=== PATIENT | female | born 1940 | race Caucasian/White ===

== ENCOUNTER 2016-04-23 05:39 | Inpatient (IN) | payer MEDICARE ==
[2016-04-23 06:24] LABS: Hematocrit 26 % (35-47); Hemoglobin 8.6 g/dl (12.0-16.0); Mean Corpuscular HGB Conc 33 g/dl (31-36); Mean Corpuscular Hemoglobin 32 pg (27-31); Mean Corpuscular Volume 99 fL (80-97); Mean Platelet Volume 9 um3 (7.4-10.4); Red Blood Count 2.65 10^6/ul (4.0-5.4); Red Cell Distribution Width 14 % (10.5-15); White Blood Count 2.9 10^3/ul (3.5-10.8)
[2016-04-23 06:25] LABS: Add Diff/Slide Review? Slide Review Added; Comments Flag Yes
[2016-04-23 06:42] LABS: Budding Yeast Present (Absent); Urine Bacteria Absent (Absent); Urine Bilirubin Negative (Negative); Urine Glucose Negative (Negative); Urine Nitrite Negative (Negative)
[2016-04-23 06:50] LABS: Albumin 2.3 g/dL (3.2-5.2); BUN/Creatinine Ratio 36.6 (8-20); Calcium 7.5 mg/dL (8.6-10.3); EGFR African American 87.9 (>60); EGFR Non-African American 68.3 (>60); Magnesium 1.6 mg/dL (1.9-2.7); Potassium 4.7 mmol/L (3.5-5.0); Total Bilirubin 0.7 mg/dL (0.2-1.0); Total Protein 5.3 g/dL (6.4-8.9)
[2016-04-23 06:52] LABS: Troponin I 0.04 ng/mL (<0.04)
[2016-04-23 06:55] LABS: Hypochromasia 1+; Immature Granulocytes 22 % (0-9); Neutrophil % 70 % (38-83); Toxic Granulation 2+
[2016-04-23] MEDS ORDERED: Norepinephrine 16MCG/ML IVPRE* 4,000 MCG/250 ML BAG IV ONE (07:06)
[2016-04-23 07:41] LABS: PCO2 Arterial 43 mmHg (35-45)
[2016-04-23] MEDS ORDERED: Vancomycin(*) 1,000 MG in NS 0.9% 250 ML* 250 ML IVPB ONE (07:48)
--- NOTE | 2016-04-23 08:07 | HP ---
H&P (Free Text) History and Physical: PCP: Dr Anglin Pulmonology: Abbie Finn Psychiatry: Kae Abdul Date/Time of Evaluation: 04/23/2016 0530 CC: septic shock 2nd RLL pneumonia HPI: Mrs Mcclelland is a 75YO female HX COPD, HTN, & anxiety who is received in transfer from [place] intubated and on 20mics of norepinephrine GTT with the diagnosis of septic shock 2nd RLL pneumonia, likely aspiration. This history is therefore obtained from her , 2 daughter, and the [place] ED provider. She began feeling like she had with her previous pneumonia 03/25/2016. However, CXR at [facility] was reportedly negative and no treatment prescribed. She continued to worsen returning to [place] 03/27/2016 this time with a CXR positive for RLL pneumonia. She was admitted to [facility] from 03/27/2016 - 04/06, but was not improving adequately and so was transferred to [facility] where her track car operator, Dr Carvajal, practices. CT chest reportedly confirmed RLL pneumonia. She was treated with meropenem and a swallowing evaluation resulted in a recommendation for honey-thick fluids. On 04/17 she was felt brynn for discharge to [facility] for acute rehab of generalized deconditioning. While there the family believes speech therapy was working with her to improve swallowing and get her back to thin fluids. They did note that she continued to sound 'gurgly' when breathing. While still at [facility] she started becoming confused, refusing to see family, etc which progressed to lethargy by 04/22/2016 for which she was taken back to [place] ED with finding of recurrent RLL pneumonia and admitted. Within hours of admission, she had manifested septic shock with pressures of 70s/30s not responding to dopamine for pressure support & with an saO2 in the high 80s despite 15L oxymask for which she was transitioned to BiPap prompting a request to transfer. Instructions were given to D/C dopamine, start/titrate norepinephrine GTT to MAP of 60, and intubate for airway protection en route. Upon arrival to our ICU bed 6, her systolic was 110s on 20mics of norepinephrine with likewise stable other vitals. Of note, her daughter thought that a sputum CX at [facility] had been "weakly" positive for MRSA, but that her physician wasn't convinced. 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 MRSA positive sputum CX at [facility] this month depression/anxiety, has electroconvulsive therapy ~Q10D at [facility] via Dr Barnes Allergies: to be updated by nursing Medications: will need to be reconciled by nursing via Rx PSurgHx acoustic neuroma excision cholecystectomy hysterectomy rectocele repair SocHx: former smoker quit ~25years ago w/ ~30PYHX, no alcohol or recreational drugs; lives with her , has 2 adult daughter; full code status FamHx: reviewed, non-contributory ROS: as above, otherwise reviewed and all were negative Constitutional: NAD, normally developed, well-nourished elderly white female vitals: Vital Signs Temp 37.2 C 04/23/16 07:34 Pulse 96 04/23/16 06:05 Resp 15 04/23/16 06:05 BP 125/44 04/23/16 06:05 Pulse Ox 98 04/23/16 06:05 Intake & Output 04/22/16 04/22/16 04/23/16 11:59 23:59 11:59 Weight 137 lb 2.04 oz HEENM: atraumatic; sclera/conjunctiva: non-icteric/mildly injected; hearing: unable to assess; oropharynx: intubated, mucosa moist Neck: soft tissue: non-tender; thyroid: normal Pulmonary: clear to auscultation bilaterally, good aeration, no accessory muscle use CV: RR/RR, normal S1S2, no carotid bruit, no jugular venous distention, 2+ B DP/ PT, no edema Abdominal: soft, non-distended, non-tender, no rebound/guarding/rigidity, normoactive bowel sounds, no hepatosplenomegaly or masses, no costovertebral angle tenderness Musculoskeletal: general: grossly intact; gait: currently non-ambulatory 2nd critical condition Integumental: normal appearance and texture of exposed skin, complete exam to be completed later Psychiatric orientation: sedated on propfol, RASS -1 affect: somnolent mood: comfortable eye contact: absent content: absent responses: withdraws purposefully insight: currently absent Testing: Lab Results 04/23/16 04/23/16 04/23/16 Range/Units 06:00 06:00 06:00 WBC 2.9 L (3.5-10.8) 10^3/ul RBC 2.65 L (4.0-5.4) 10^6/ul Hgb 8.6 L (12.0-16.0) g/dl Hct 26 L (35-47) % MCV 99 H (80-97) fL MCH 32 H (27-31) pg MCHC 33 (31-36) g/dl RDW 14 (10.5-15) % Plt Count 131 L (150-450) 10^3/ul MPV 9 (7.4-10.4) um3 Immature Gran % (Auto) 22 H (0-9) % Neut % (Auto) 88.4 H (38-83) % Lymph % (Auto) 4.8 L (25-47) % Terrell % (Auto) 6.6 (1-9) % Eos % (Auto) 0 (0-6) % Baso % (Auto) 0.2 (0-2) % Absolute Neuts (auto) 2.6 (1.5-7.7) 10^3/ul Absolute Lymphs (auto) 0.1 L (1.0-4.8) 10^3/ul Absolute Monos (auto) 0.2 (0-0.8) 10^3/ul Absolute Eos (auto) 0 (0-0.6) 10^3/ul Absolute Basos (auto) 0 (0-0.2) 10^3/ul Absolute Nucleated RBC 0 10^3/ul Neutrophils % 70 (38-83) % Band Neutrophils % 22 H (0-8) % Monocytes % 8 (0-13) % Nucleated RBC % 0 Toxic Granulation 2+ Normal RBC Morphology Not Reportable Hypochromasia 1+ INR (Anticoag Therapy) 0.98 (0.89-1.11) ABG pH (7.35-7.45) ABG pCO2 (35-45) mmHg ABG pO2 (80-100) mmHg ABG HCO3 (19-31) mmol/L ABG O2 Saturation (95-98) % ABG Base Excess (-2.0-2.0) Sodium 139 (133-145) mmol/L Potassium 4.7 (3.5-5.0) mmol/L Chloride 107 (101-111) mmol/L Carbon Dioxide 25 (22-32) mmol/L Anion Gap 7 (2-11) mmol/L BUN 30 H (6-24) mg/dL Creatinine 0.82 (0.51-0.95) mg/dL Est GFR ( Amer) 87.9 (>60) Est GFR (Non-Af Amer) 68.3 (>60) BUN/Creatinine Ratio 36.6 H (8-20) Glucose 174 H (70-100) mg/dL Lactic Acid (0.5-2.0) mmol/L Calcium 7.5 L (8.6-10.3) mg/dL Magnesium 1.6 L (1.9-2.7) mg/dL Total Bilirubin 0.70 (0.2-1.0) mg/dL AST 11 L (13-39) U/L ALT 18 (7-52) U/L Alkaline Phosphatase 46 (34-104) U/L Troponin I 0.04 H* (<0.04) ng/mL Total Protein 5.3 L (6.4-8.9) g/dL Albumin 2.3 L (3.2-5.2) g/dL Globulin 3.0 (2-4) g/dL Albumin/Globulin Ratio 0.8 L (1-3) Urine Color Urine Appearance Urine pH (5-9) Ur Specific Sherman (1.010-1.030) Urine Protein (Negative) Urine Ketones (Negative) Urine Blood (Negative) Urine Nitrate (Negative) Urine Bilirubin (Negative) Urine Urobilinogen (Negative) Ur Leukocyte Esterase (Negative) Urine WBC (Auto) (Absent) Urine RBC (Auto) (Absent) Ur Squamous Epith Cells (Absent) Ur Transition Epith Cell (Absent) Urine Bacteria (Absent) Granular Casts (Absent) Urine Yeast (Absent) Urine Glucose (Negative) Urine Ascorbic Acid (Negative) 04/23/16 04/23/16 04/23/16 Range/Units 06:00 06:00 07:20 WBC (3.5-10.8) 10^3/ul RBC (4.0-5.4) 10^6/ul Hgb (12.0-16.0) g/dl Hct (35-47) % MCV (80-97) fL MCH (27-31) pg MCHC (31-36) g/dl RDW (10.5-15) % Plt Count (150-450) 10^3/ul MPV (7.4-10.4) um3 Immature Gran % (Auto) (0-9) % Neut % (Auto) (38-83) % Lymph % (Auto) (25-47) % Terrell % (Auto) (1-9) % Eos % (Auto) (0-6) % Baso % (Auto) (0-2) % Absolute Neuts (auto) (1.5-7.7) 10^3/ul Absolute Lymphs (auto) (1.0-4.8) 10^3/ul Absolute Monos (auto) (0-0.8) 10^3/ul Absolute Eos (auto) (0-0.6) 10^3/ul Absolute Basos (auto) (0-0.2) 10^3/ul Absolute Nucleated RBC 10^3/ul Neutrophils % (38-83) % Band Neutrophils % (0-8) % Monocytes % (0-13) % Nucleated RBC % Toxic Granulation Normal RBC Morphology Hypochromasia INR (Anticoag Therapy) (0.89-1.11) ABG pH 7.32 L (7.35-7.45) ABG pCO2 43 (35-45) mmHg ABG pO2 98 (80-100) mmHg ABG HCO3 21.9 (19-31) mmol/L ABG O2 Saturation 98.6 H (95-98) % ABG Base Excess -3.8 L (-2.0-2.0) Sodium (133-145) mmol/L Potassium (3.5-5.0) mmol/L Chloride (101-111) mmol/L Carbon Dioxide (22-32) mmol/L Anion Gap (2-11) mmol/L BUN (6-24) mg/dL Creatinine (0.51-0.95) mg/dL Est GFR ( Amer) (>60) Est GFR (Non-Af Amer) (>60) BUN/Creatinine Ratio (8-20) Glucose (70-100) mg/dL Lactic Acid 0.7 (0.5-2.0) mmol/L Calcium (8.6-10.3) mg/dL Magnesium (1.9-2.7) mg/dL Total Bilirubin (0.2-1.0) mg/dL AST (13-39) U/L ALT (7-52) U/L Alkaline Phosphatase (34-104) U/L Troponin I (<0.04) ng/mL Total Protein (6.4-8.9) g/dL Albumin (3.2-5.2) g/dL Globulin (2-4) g/dL Albumin/Globulin Ratio (1-3) Urine Color Amanda Urine Appearance Turbid Urine pH 5.0 (5-9) Ur Specific Sherman 1.018 (1.010-1.030) Urine Protein 2+(100 mg/dl) H (Negative) Urine Ketones 1+ H (Negative) Urine Blood Negative (Negative) Urine Nitrate Negative (Negative) Urine Bilirubin Negative (Negative) Urine Urobilinogen Negative (Negative) Ur Leukocyte Esterase 3+ H (Negative) Urine WBC (Auto) 3+(>20/hpf) H (Absent) Urine RBC (Auto) 3+(>10/hpf) H (Absent) Ur Squamous Epith Cells Present H (Absent) Ur Transition Epith Cell Present H (Absent) Urine Bacteria Absent (Absent) Granular Casts Present H (Absent) Urine Yeast Present H (Absent) Urine Glucose Negative (Negative) Urine Ascorbic Acid * H (Negative) ECG, personally reviewed: ordered, pending CXR, personally reviewed: ordered, pending Impression: 75F w/ very complicated co-morbidities transferred from [place] with septic shock 2nd RLL aspiration pneumonia, hypoxic respiratory failure Plan: Case was checked out with Jhonny Silva MD loading machine adjuster who agreed to write all admission orders. DIAGNOSIS & PLAN Primary septic shock 2nd RLL aspiration pneumonia : IVFs : IV ABX per Jhonny Silva MD loading machine adjuster : ? 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
[2016-04-23] MEDS ORDERED: Vancomycin per Pharmacy* NOTE FOLLOW UP PRN (08:14)
[2016-04-23] MEDS: Albuterol/Ipratropium NEB.SOL* Albuterol 2.5 MG/Ipratropium 0.5 MG 3 ML INH SCH ×3 (08:30→19:43)
--- NOTE | 2016-04-23 08:46 | RAD ---
INDICATION: Pneumonia COMPARISON: Same day chest x-ray acquired at 0417 hours TECHNIQUE: Single AP portable view of the chest was obtained on April 23, 2016 at 0823 hours. FINDINGS: Image quality is compromised due to the relative inferiority of a portable chest x-ray. The endotracheal tube and right neck central line are unchanged in position from the previous chest x-ray. There is mild cardiomegaly. There is calcification at the arch of the aorta. There is density obscuring the bilateral lower lungs with obscuration of the diaphragm and blunting of the costophrenic angles. This is more severe at the right lung base than the left. The lung apices and mid-level lungs appear to be adequately aerated. IMPRESSION: Similar appearance of right greater than left bibasilar densities which could represent consolidation and/or pleural effusion. The degree of aeration has not substantially changed when compared to the chest x-ray acquired at 0417 hours.
[2016-04-23] MEDS: Propofol* 100 ML IV SCH ×2 (08:50→15:08)
[2016-04-23] MEDS: methylPREDNISolone SOD 40 MG* 1 ML VIAL IV SCH ×2 (08:51→09:45)
[2016-04-23] MEDS: Enoxaparin(*) 40 MG/0.4 ML SYR SUBCUT SCH (08:51)
[2016-04-23] MEDS: Meropenem 1 GM PREMIX(*) 1 GM/50 ML BAG IV SCH ×2 (08:58→15:02)
[2016-04-23] MEDS: Famotidine SUSP* 40 MG/5 ML ORAL.SUSP 50 ML BOTTLE G TUBE SCH ×2 (09:49→20:43)
[2016-04-23] MEDS: Chlorhexidine MOUTHWASH 0.12%* 15 ML UDC TOPICAL SCH ×4 (10:37→22:10)
--- NOTE | 2016-04-23 14:31 | PN ---
Critical Care Services: Patient with severe COPD (on home O2 [id number]) sent here from [facility] because of pneumonia and respiratory failure, requiring mechanical ventilation. Had similar episode in early March, and has ? swallowing dysfunction. Patient also has Hx of anxiety and depression, and has been treated with electroshock therapy every 3 weeks. Vital Signs: Temp Pulse Resp BP SpO2 FiO2 98.3 F 104 19 134/58 98 40 NOTE: On levophed for BP support. Physical Exam: Gen:Resting comfortably on ventilator Lungs:scaterred rhonchi Extremities:no cyanosis or edema. Fluid Balance (Past 24 Hours): 04/23/16 04/24/16 06:59 06:59 Intake Total 1340 Output Total 100 Balance 1240 Weight 137 lb 2.04 oz Intake: IV Fluids 700 LR 700 Medicated IV 640 CC - Norepinephrine/ 200 Levophed CC - Propofol/Diprivan 90 meropenem 100 vanco 250 Output: Echeverria 100 Labs: 04/23/16 04/23/16 06:00 06:00 WBC 2.9 RBC 2.65 Hgb 8.6 Hct 26 MCV 99 MCH 32 MCHC 33 RDW 14 Plt Count 131 Band Neutrophils % 22 Toxic Granulation 2+ INR (Anticoag Therapy) 0.98 Sodium 139 Potassium 4.7 Chloride 107 Carbon Dioxide 25 Anion Gap 7 BUN 30 Creatinine 0.82 Glucose 174 Lactic Acid 0.7 Magnesium 1.6 Total Bilirubin 0.70 AST 11 ALT 18 Alkaline Phosphatase 46 Troponin I 0.04 Total Protein 5.3 Albumin 2.3 04/23/16 04/23/16 06:00 07:20 ABG pH 7.32 ABG pCO2 43 ABG pO2 98 ABG HCO3 21.9 ABG O2 Saturation 98.6 H ABG Base Excess -3.8 L Urine Color Amanda Urine Appearance Turbid Urine pH 5.0 Ur Specific [place] 1.018 Urine Protein 2+(100 mg/dl) H Urine Ketones 1+ H Urine Blood Negative Urine Nitrate Negative Urine Bilirubin Negative Urine Urobilinogen Negative Ur Leukocyte Esterase 3+ Urine WBC (Auto) 3+(>20/hpf) Urine RBC (Auto) 3+(>10/hpf) Ur Squamous Epith Cells Present H Ur Transition Epith Cell Present H Urine Bacteria Absent Granular Casts Present H Urine Yeast Present H Urine Glucose Negative Urine Ascorbic Acid * H Studies: CXR: Bibasilar infiltrates and ? right pleural effusion Nutrition: None Impression: Advanced COPD complicated by apparent pneumonia. The combination of leukopenia and "bandemia" is concerning. Plan: 1. Empiric antibiotic coverage with vancomycin and meropenem (patient has apparent PCN and cephalosporin allergies, although these are poorly documented) . 2. Start enteral tube feedings. 3. Culture blood, sputum, and urine. 4. Sedate as needed. Patient's and daughters are present at the bedside, and have been informed of the prevailing diagnosis and management plan. Critical Care Time: 50 minutes
[2016-04-23] MEDS: Norepinephrine 16MCG/ML IVPRE* 4,000 MCG/250 ML BAG IV SCH (15:10)
[2016-04-23] MEDS: Vancomycin(*) 1,000 MG in NS 0.9% 250 ML* 250 ML IVPB SCH (20:40)
[2016-04-24] MEDS: Propofol* 100 ML IV SCH (02:38)
[2016-04-24] MEDS: Meropenem 1 GM PREMIX(*) 1 GM/50 ML BAG IV SCH ×3 (02:47→15:26)
[2016-04-24] MEDS: Chlorhexidine MOUTHWASH 0.12%* 15 ML UDC TOPICAL SCH ×3 (03:09→10:18)
[2016-04-24] MEDS: Albuterol/Ipratropium NEB.SOL* Albuterol 2.5 MG/Ipratropium 0.5 MG 3 ML INH SCH ×4 (03:20→22:59)
[2016-04-24] MEDS: Norepinephrine 16MCG/ML IVPRE* 4,000 MCG/250 ML BAG IV SCH (04:37)
[2016-04-24 06:45] LABS: Hematocrit 25 % (35-47); Hemoglobin 8.3 g/dl (12.0-16.0); Mean Corpuscular HGB Conc 33 g/dl (31-36); Mean Corpuscular Hemoglobin 32 pg (27-31); Mean Corpuscular Volume 98 fL (80-97); Mean Platelet Volume 9 um3 (7.4-10.4); Red Blood Count 2.57 10^6/ul (4.0-5.4); Red Cell Distribution Width 14 % (10.5-15); White Blood Count 5.1 10^3/ul (3.5-10.8)
[2016-04-24 06:52] LABS: Calcium 7.6 mg/dL (8.6-10.3); EGFR African American 89.1 (>60); EGFR Non-African American 69.3 (>60); Potassium 4.2 mmol/L (3.5-5.0)
[2016-04-24] MEDS: Enoxaparin(*) 40 MG/0.4 ML SYR SUBCUT SCH (07:38)
[2016-04-24] MEDS: Famotidine SUSP* 40 MG/5 ML ORAL.SUSP 50 ML BOTTLE G TUBE SCH (07:39)
[2016-04-24] MEDS: methylPREDNISolone SOD 40 MG* 1 ML VIAL IV SCH (07:39)
[2016-04-24] MEDS: Vancomycin(*) 1,000 MG in NS 0.9% 250 ML* 250 ML IVPB SCH (07:51)
[2016-04-24] MEDS ORDERED: Dexmedetomidine* 50 ML ONE (08:17)
[2016-04-24] MEDS ORDERED: Haloperidol INJ IV/IM* 5 MG/ML AMP IV SLOW PU PRN (08:47)
[2016-04-24] MEDS ORDERED: LORazepam INJ* 2 MG/ML 1 ML VIAL IV PUSH PRN (08:48)
[2016-04-24] MEDS ORDERED: Haloperidol INJ IV/IM* 5 MG/ML AMP ONE (08:50)
[2016-04-24] MEDS ORDERED: Dexmedetomidine* 50 ML IVPB SCH ×2 (09:00)
[2016-04-24] MEDS: LORazepam INJ* 2 MG/ML 1 ML VIAL IV PUSH PRN ×2 (11:29→21:35)
--- NOTE | 2016-04-24 15:36 | PN ---
Critical Care Services: Weaned from ventilator today and extubated without incident. Presently breathing comfortably with nasal O2. Vital Signs: Temp Pulse Resp BP SpO2 FiO2 97.8 F 92 26 112/54 98 30 Physical Exam: Gen:Anxious Lungs:Crackles on right. No wheezes. Extremities:no cyanosis or edema Fluid Balance (Past 24 Hours): 04/24/16 06:59 Intake Total 4799 Output Total 475 Balance +4324 Weight Intake: IV Fluids 700 LR 700 IVPB 2369 LR 2369 Medicated IV 1730 CC - Dexmedetomidine/ Precedex CC - Norepinephrine/ 831 Levophed CC - Propofol/Diprivan 244 meropenem 155 vanco 500 Oral 0 Output: Echeverria 475 Labs: 04/24/16 04/24/16 05:30 05:30 WBC 5.1 Hgb 8.3 L Hct 25 L Plt Count 119 L Sodium 140 Potassium 4.2 Chloride 108 Carbon Dioxide 25 BUN 34 H Creatinine 0.81 Glucose 133 H Calcium 7.6 L Studies: MiniBAL: Gram stain shows no organisms, and culture is negative so far. Urine is growing Enterococcus faecium, > 100,000 cfu/mL Nutrition: Oral diet started today Impression: Respiratory status improved. No evidence of lung infection by miniBAL, but has UTI. Fortunately, leukopenia has resolved. Plan: 1. D/c vancomycin but continue meropenem pending sensitivities for the enterococcus. 2. stop IV fluids - no diuretic for now. 3. Use ativan for anxiety.
[2016-04-24] MEDS: clonazePAM TAB(*) 0.5 MG PO PRN ×2 (16:18→20:49)
[2016-04-24] MEDS: Nicotine GUM* 2 MG PO PRN (17:44)
[2016-04-24] MEDS ORDERED: QUEtiapine TAB* 25 MG PO SCH (21:00)
[2016-04-25] MEDS: Meropenem 1 GM PREMIX(*) 1 GM/50 ML BAG IV SCH ×3 (00:49→15:57)
[2016-04-25] MEDS: LORazepam INJ* 2 MG/ML 1 ML VIAL IV PUSH PRN ×2 (02:10→08:40)
[2016-04-25] MEDS: Albuterol/Ipratropium NEB.SOL* Albuterol 2.5 MG/Ipratropium 0.5 MG 3 ML INH SCH ×4 (03:41→19:49)
[2016-04-25 05:53] LABS: Hematocrit 26 % (35-47); Hemoglobin 8.5 g/dl (12.0-16.0); Mean Corpuscular HGB Conc 33 g/dl (31-36); Mean Corpuscular Hemoglobin 32 pg (27-31); Mean Corpuscular Volume 97 fL (80-97); Mean Platelet Volume 9 um3 (7.4-10.4); Red Blood Count 2.65 10^6/ul (4.0-5.4); Red Cell Distribution Width 14 % (10.5-15); White Blood Count 3.8 10^3/ul (3.5-10.8)
[2016-04-25] MEDS: Nicotine GUM* 2 MG PO PRN ×3 (05:59→14:41)
[2016-04-25] MEDS ORDERED: Vancomycin Trough Check NOTE FOLLOW UP ONE (08:30)
[2016-04-25] MEDS: methylPREDNISolone SOD 40 MG* 1 ML VIAL IV SCH (08:36)
[2016-04-25] MEDS: Enoxaparin(*) 40 MG/0.4 ML SYR SUBCUT SCH (08:36)
--- NOTE | 2016-04-25 14:57 | PN ---
Critical Care Services: Continues to be anxious, but is breathing easily Vital Signs: Temp Pulse Resp BP SpO2 FiO2 98.8 F 126 36 160/70 98 40 Physical Exam: Gen:As described. Lungs:Scattered rhonchi. no wheezes. Extremities:Warm. 1+ edema both UEs Neuro:Resting head tremor. Fluid Balance (Past 24 Hours): 04/25/16 06:59 Intake Total 1853 Output Total 550 Balance +1303 Weight 143 lb Intake: IV Fluids 428 LR 382 NS KVO 46 IVPB 910 LR 850 NS KVO 60 Medicated IV 455 CC - Dexmedetomidine/ 70 Precedex CC - Norepinephrine/ 10 Levophed CC - Propofol/Diprivan 25 meropenem 100 vanco 250 Oral 60 Output: Echeverria 550 Other: # Bowel Movements 1 Estimated Stool Amount Medium Labs: 04/25/16 05:30 WBC 3.8 RBC 2.65 L Hgb 8.5 L Hct 26 L MCV 97 MCH 32 H MCHC 33 RDW 14 Plt Count 120 L MPV 9 Studies: None today. No sensitivities reported on enterococcus in urine. Nutrition: Oral diet Impression: Major problem now, besides the COPD and UTI, is anxiety, which is a longstanding problem. Plan: Restart outpatient antianxiety meds. De-escalate antibiotic Rx when sensitivities available for enterococcus in the urine. Will also send physical therapy consult - Patient may need a short stay in a rehab unit prior to returning home.
[2016-04-25] MEDS ORDERED: QUEtiapine TAB* 25 MG PO PRN (15:10)
[2016-04-25] MEDS: clonazePAM TAB(*) 0.5 MG PO SCH ×2 (15:57→21:35)
[2016-04-25] MEDS: Acetaminophen TAB* 325 MG PO PRN (22:34)
[2016-04-26] MEDS: LORazepam INJ* 2 MG/ML 1 ML VIAL IV PUSH PRN (01:23)
[2016-04-26] MEDS: Meropenem 1 GM PREMIX(*) 1 GM/50 ML BAG IV SCH ×3 (01:25→17:01)
[2016-04-26] MEDS: Albuterol/Ipratropium NEB.SOL* Albuterol 2.5 MG/Ipratropium 0.5 MG 3 ML INH SCH ×4 (03:10→21:10)
[2016-04-26 06:01] LABS: Hematocrit 26 % (35-47); Hemoglobin 8.5 g/dl (12.0-16.0); Mean Corpuscular HGB Conc 33 g/dl (31-36); Mean Corpuscular Hemoglobin 32 pg (27-31); Mean Corpuscular Volume 97 fL (80-97); Mean Platelet Volume 9 um3 (7.4-10.4); Red Blood Count 2.68 10^6/ul (4.0-5.4); Red Cell Distribution Width 14 % (10.5-15)
[2016-04-26 06:11] LABS: BUN/Creatinine Ratio 45.3 (8-20); Calcium 8.1 mg/dL (8.6-10.3); EGFR African American 83.2 (>60); EGFR Non-African American 64.7 (>60); Potassium 4.6 mmol/L (3.5-5.0)
[2016-04-26] MEDS: Enoxaparin(*) 40 MG/0.4 ML SYR SUBCUT SCH (08:40)
[2016-04-26] MEDS: clonazePAM TAB(*) 0.5 MG PO SCH (08:41)
[2016-04-26] MEDS: Diltiazem CD CAP* 240 MG PO SCH (08:42)
[2016-04-26] MEDS: predniSONE TAB* 10 MG PO SCH (08:42)
[2016-04-26] MEDS ORDERED: Vancomycin(*) 1,000 MG in NS 0.9% 250 ML* 250 ML IVPB SCH (09:00)
[2016-04-26] MEDS ORDERED: Vancomycin(*) 1,000 MG in NS 0.9% 250 ML* 250 ML IVPB ONE (09:00)
[2016-04-26] MEDS ORDERED: LORazepam INJ* 2 MG/ML 1 ML VIAL IV PUSH PRN (09:07)
[2016-04-26] MEDS ORDERED: Vancomycin per Pharmacy* NOTE FOLLOW UP PRN (11:15)
[2016-04-26] MEDS: clonazePAM TAB(*) 0.5 MG PO PRN ×2 (11:44→17:21)
[2016-04-26] MEDS: QUEtiapine TAB* 25 MG PO SCH ×3 (12:53→20:17)
--- NOTE | 2016-04-26 13:08 | RAD ---
Indication: Pyelonephritis. Real-time sonography of the kidneys was performed. The right kidney measures 9.5 x 5.5 x 4.6 cm. Left kidney measures 10.7 x 5.2 x 5.1 cm. No hydronephrosis is noted in either kidney. The study is limited due to body habitus and lack of patient cooperation. IMPRESSION: Limited renal ultrasound with no evidence of hydronephrosis.
--- NOTE | 2016-04-26 15:38 | PN ---
Subjective Date of Service: 04/26/16 Interval History: HOSPITALIST PROGRESS NOTE Patient seen and examined at bedside. She is very anxious, but offers no complaints at this time. Her daughter thinks she's doing a little better, tolerated honey thick liquids well. Moist cough is getting stronger and she was able to expectorate thick white mucus. Family History: Unchanged from Admission Social History: Unchanged from Admission Past Medical History: Unchanged from Admission Objective Active Medications: Acetaminophen (Tylenol Tab*) 650 mg PO Q4H PRN PRN Reason: FEVER/PAIN Last Admin: 04/25/16 22:34 Dose: 650 mg Albuterol/Ipratropium (Duoneb Neb.Wendy*) 1 neb INH Q6H DOMINGUEZ Last Admin: 04/26/16 15:08 Dose: 1 neb Clonazepam (Klonopin Tab(*)) 0.5 mg PO QID PRN PRN Reason: ANXIETY Last Admin: 04/26/16 11:44 Dose: 0.5 mg Diltiazem HCl (Cardizem Cd Cap*) 240 mg PO DAILY DOMINGUEZ Last Admin: 04/26/16 08:42 Dose: 240 mg Enoxaparin Sodium (Lovenox(*)) 40 mg SUBCUT Q24H DOMINGUEZ Last Admin: 04/26/16 08:40 Dose: 40 mg Haloperidol Lactate (Haldol Inj Iv/Im*) 5 mg IV SLOW PU Q4H PRN PRN Reason: AGITATION Last Admin: 04/24/16 08:52 Dose: 5 mg Heparin Sodium (Porcine) (Heparin Flush Picc/Ml/Cvc(*)) 1 ml FLUSH 0600,1800 DOMINGUEZ PRN Reason: Protocol Meropenem (Merrem 1 Gm Premix(*)) 1 gm in 50 mls @ 100 mls/hr IV Q8H DOMINGUEZ Last Admin: 04/26/16 08:41 Dose: 100 mls/hr Vancomycin HCl 750 mg/ Sodium (Chloride) 250 mls @ 166.667 mls/hr IVPB Q12H DOMINGUEZ Lorazepam (Ativan Inj*) 0.5 mg IV PUSH Q4H PRN PRN Reason: ANXIETY Nicotine Polacrilex (Nicotine Gum*) 2 mg PO Q2H PRN PRN Reason: CRAVING Last Admin: 04/25/16 14:41 Dose: 2 mg Pharmacy Consult (Vancomycin Per Pharmacy*) 1 note FOLLOW UP . PRN PRN Reason: PER PROTOCOL Pharmacy Profile Note (Vancomycin Trough Check) 1 note FOLLOW UP 1030 ONE Stop: 04/28/16 10:31 Prednisone (Deltasone Tab*) 10 mg PO DAILY [facility] Last Admin: 04/26/16 08:42 Dose: 10 mg Quetiapine Fumarate (Seroquel Tab*) 25 mg PO QID [facility] Last Admin: 04/26/16 12:53 Dose: 25 mg Vital Signs 04/26/16 04/26/16 04/26/16 12:42 12:51 15:11 Temperature 98.6 F Pulse Rate 117 111 Respiratory 28 23 Rate Blood Pressure 157/80 (mmHg) O2 Sat by Pulse 97 97 99 Oximetry Oxygen Devices in Use Now: Nasal Cannula Appearance: Elderly lady sitting up in bed in [facility], but very anxious. Eyes: No Scleral Icterus Ears/Nose/Mouth/Throat: Mucous Membranes Moist Neck: Trachea Midline Respiratory: Symmetrical Chest Expansion and Respiratory Effort, - - BS+ bilaterally coarse with scattered rhonchi Cardiovascular: RRR - Normal S1 and S2 Abdominal: NL Sounds; No Tenderness; No Distention Extremities: No Edema Neurological: - - AAOx2 (self and place), very LAC VIEUX, SERRANO Lines/Tubes/Other Access: Clean, Dry and Intact Central Line - Right IJ Nutrition: Taking PO's Result Diagrams: 04/26/16 05:50 04/26/16 05:03 Assess/Plan/Problems-Billing Assessment: Mrs. Mcclelland is a 75yo F with PMH of COPD, HTN, anxiety, macular degeneration, LAC VIEUX due to acoustic neuroma, chronic urinary retention (family straight caths twice a day), chronic constipation, h/o MRSA UTI, depression/anxiety (has ECT at [place]), who presented to ED on 04/23/16 with septic shock, initially felt to be secondary to pneumonia, later on found to be secondary to Enterococcus UTI. In ICU from 04/23/16 to 04/25/16. - Patient Problems (1) Septic shock Comment: - Source was Enterococcus UTI, present on admission, not Echeverria catheter related. - Improved. (2) Enterococcus UTI Comment: - Likely associated with chronic urinary retention. - Continue Meropenem, add Vancomycin and will request ID consult. - Renal US was limited, but did not show hydronephrosis. (3) COPD (chronic obstructive pulmonary disease) Comment: - She does not have an exacerbation at this time, but at very high risk for aspiration and another episode fo pneumonia. - Speech pathology input appreciated - continue honey thick liquids and pureed diet. - Continue bronchodilators and steroids. (4) Acute and chronic respiratory failure Comment: - Extubated 04/24/16. - Continue supplemental O2. (5) Tachycardia Comment: - As per daughter, patient's HR at baseline is around 110bpm. - Continue Diltiazem. (6) Urinary retention Comment: - Continue Echeverria catheter. (7) Anemia Comment: - Check anemia w/u. (8) Anxiety Comment: - Continue Seroquel (change to standing order as she was doing at home) , Clonazepam (change to PRN as she was doing at home). - Also has Haldol and Ativan available as needed. (9) DVT prophylaxis Comment: - Lovenox. Status and Disposition: Inpatient. Daughter (Scarlet) updated at bedside.
[2016-04-26] MEDS: Acetaminophen TAB* 325 MG PO PRN (18:29)
[2016-04-26] MEDS: Vancomycin(*) 750 MG in NS 0.9% 250 ML* 250 ML IVPB SCH (23:02)
[2016-04-27] MEDS: Meropenem 1 GM PREMIX(*) 1 GM/50 ML BAG IV SCH ×3 (01:00→17:25)
[2016-04-27] MEDS: Albuterol/Ipratropium NEB.SOL* Albuterol 2.5 MG/Ipratropium 0.5 MG 3 ML INH SCH ×4 (03:01→19:38)
[2016-04-27 04:20] LABS: Hematocrit 27 % (35-47); Hemoglobin 8.7 g/dl (12.0-16.0); Mean Corpuscular HGB Conc 33 g/dl (31-36); Mean Corpuscular Hemoglobin 32 pg (27-31); Mean Corpuscular Volume 97 fL (80-97); Mean Platelet Volume 8 um3 (7.4-10.4); Red Blood Count 2.75 10^6/ul (4.0-5.4); Red Cell Distribution Width 14 % (10.5-15); White Blood Count 6.3 10^3/ul (3.5-10.8)
[2016-04-27 04:31] LABS: Anion Gap 2 mmol/L (2-11); BUN/Creatinine Ratio 42.6 (8-20); Blood Urea Nitrogen 29 mg/dL (6-24); C Reactive Protein 16.46 mg/L (< 5.00); CO2 Carbon Dioxide 30 mmol/L (22-32); Calcium 8.4 mg/dL (8.6-10.3); Chloride 107 mmol/L (101-111); EGFR African American 109.1 (>60); EGFR Non-African American 84.8 (>60); Glucose 73 mg/dL (70-100); Potassium 4.2 mmol/L (3.5-5.0); Sodium 139 mmol/L (133-145)
[2016-04-27 05:12] LABS: Iron 17 ug/dL (50-212); Total Iron Binding Capacity 182 mcg/dL (250-450); Transferrin 130 mg/dL (203-362)
[2016-04-27 05:37] LABS: Ferritin > 1500.0 ng/mL (11-307)
[2016-04-27 05:38] LABS: Folate 15.65 ng/mL (>3.99); Vitamin B12 787 pg/mL (180-914)
[2016-04-27] MEDS: clonazePAM TAB(*) 0.5 MG PO PRN (09:28)
[2016-04-27] MEDS: Diltiazem CD CAP* 240 MG PO SCH (09:29)
[2016-04-27] MEDS: Enoxaparin(*) 40 MG/0.4 ML SYR SUBCUT SCH (09:30)
[2016-04-27] MEDS: predniSONE TAB* 10 MG PO SCH (09:31)
[2016-04-27] MEDS: QUEtiapine TAB* 25 MG PO SCH ×4 (09:31→20:13)
[2016-04-27] MEDS ORDERED: NS 0.9% 250 ML* 250 ML ONE (10:46)
[2016-04-27] MEDS: Vancomycin(*) 750 MG in NS 0.9% 250 ML* 250 ML IVPB SCH ×2 (10:55→22:07)
--- NOTE | 2016-04-27 13:13 | RAD ---
Indication: Respiratory failure. Single frontal view of the chest performed at 1240 hours was reviewed. Comparison is made with previous exam dated April 23, 2016. No mediastinal shift is noted. Heart is of normal size and configuration. Increasing airspace disease in lung bases consistent with worsening pneumonia. Central line appears in place via the right internal jugular vein.. IMPRESSION: INCREASING BIBASILAR AIRSPACE DISEASE SUSPICIOUS FOR ASPIRATION PNEUMONIA.
--- NOTE | 2016-04-27 14:23 | PN ---
Progress Note - Progress Note Note: CRITICAL CARE MEDICINE Date: 04/27/16 Time: 1600 looking and feeling better on HFO2. keep a touch dry. Leave on HFO2 for now. Can avoid intubation for now. Abx as is. Will need pulm toliet effort tomorrow. Cheyanne Wynn, DO
--- NOTE | 2016-04-27 14:35 | PN ---
Progress Note - Progress Note Note: CRITICAL CARE MEDICINE Date: 04/27/16 Time: 1330 SUBJECTIVE: Patient seen and examined. D/w Dr. Ledbetter; known to ICU, and return with recurrent aspiration pneumonitis and acute on chronic hypoxic and hypercarbic resp failure. PHYSICAL EXAM: Vital Signs: Reviewed. rr 30s. Hr 110s. Neurologic: awake, slow to respond. states she is scarred. HEENT: pupils reactive. Orbital wasting. Trachea midline. Cardiovascular: S1 S2 distant, tachy Respiratory: dec globally with equal phase respirations. Poor forced exhalation and not much insp flow either. Abdomen: Soft, nt. No r/g/r. Extremities: Warm. +edema. Access: R IJ LABS: Reviewed. IMAGING: Reviewed. Further evidence of aspiration with bibasilar airspace disease and sequestered fluid MEDICATIONS: Reviewed. ASSESSMENT: 75 F Acute on chronic hypoxic and hypercarbic resp failure End stage copd - on 5L at home chronically Enterococcus uti - on meropenum HCAP on admission - has been on vanco; although more aspiration then new pna. Severe anxiety disorder Failure to thrive PLAN: Neurologic: high anxiety. Start low dose morphine gtt and can use herself as net sql developer if desired to better help against air hunger. keep haldol and ativan and her outpt meds. Cardiovascular: Perfusing, but HR up sec to lung disease and has remained tachy during much of her stay. Has interstial volume and would support flow phase when her dynamics support and see if she can mobilze any extra lung water. 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 D/w family and all in agreement to forgo MV and see if we can maintain on HFO2 without ppv. If she can be comfortable and control her flow needs better, she can perhaps rescue. I do worry about her becoming dependent on HFO2 but need to see how she adapts first. supportive care. Gastrointestinal: poor nutrition and although she can pass swallow eval, doesn' t mean she can maintain secretion clearance and still difficult for her to thrive. Hold off on swallow eval for now until breathing better. Renal/Metabolic: as above. f/u lytes. Infectious Disease: on broad coverage, but this acute nature not abx fix. Will look to mo vanco soon after short course and given her course already with meropenum and allergies, will complete total 7 days. Hematology: stable. lovenox Endocrine: stable anemia. on steroids. Musculoskeletal: bedrest. weak. f/u for pt Psych/Social: d/w family at length. They all express good understanding. "no one wants her to suffer". Agree with DNR, DNI. Supportive and preventative care as ordered. Disposition: ICU Code Status: Full Critical Care Time: 45min FArelis Wynn DO
[2016-04-27] MEDS ORDERED: Morphine PCA ADULT* 5 MG/ML 30 ML PCA SCH (15:00)
--- NOTE | 2016-04-27 17:59 | PN ---
Subjective Date of Service: 04/27/16 Interval History: HOSPITALIST PROGRESS NOTE Patient seen and examined at bedside earlier today. She sounded more congested, was tachypneic, very weak cough. Offers no complaints, but is visibly in respiratory distress. Family History: Unchanged from Admission Social History: Unchanged from Admission Past Medical History: Unchanged from Admission Objective Active Medications: Acetaminophen (Tylenol Tab*) 650 mg PO Q4H PRN PRN Reason: FEVER/PAIN Last Admin: 04/26/16 18:29 Dose: 650 mg Albuterol/Ipratropium (Duoneb Neb.Wendy*) 1 neb INH Q6H DOMINGUEZ Last Admin: 04/27/16 16:20 Dose: Not Given Clonazepam (Klonopin Tab(*)) 0.5 mg PO QID PRN PRN Reason: ANXIETY Last Admin: 04/27/16 09:28 Dose: 0.5 mg Diltiazem HCl (Cardizem Cd Cap*) 240 mg PO DAILY DOMINGUEZ Last Admin: 04/27/16 09:29 Dose: 240 mg Enoxaparin Sodium (Lovenox(*)) 40 mg SUBCUT Q24H DOMINGUEZ Last Admin: 04/27/16 09:30 Dose: 40 mg Haloperidol Lactate (Haldol Inj Iv/Im*) 5 mg IV SLOW PU Q4H PRN PRN Reason: AGITATION Last Admin: 04/24/16 08:52 Dose: 5 mg Heparin Sodium (Porcine) (Heparin Flush Picc/Ml/Cvc(*)) 1 ml FLUSH 0600,1800 DOMINGUEZ PRN Reason: Protocol Last Admin: 04/27/16 05:12 Dose: 3 ml Meropenem (Merrem 1 Gm Premix(*)) 1 gm in 50 mls @ 100 mls/hr IV Q8H DOMINGUEZ Last Admin: 04/27/16 17:25 Dose: 100 mls/hr Vancomycin HCl 750 mg/ Sodium (Chloride) 250 mls @ 166.667 mls/hr IVPB Q12H DOMINGUEZ Last Admin: 04/27/16 10:55 Dose: 166.667 mls/hr Morphine Sulfate (Morphine Grave Digger Adult* 5 Mg/Ml) 30 mls @ 0 mls/hr CATTLE TRADER .change Q24H DOMINGUEZ; Per Protocol PRN Reason: Protocol Last Admin: 04/27/16 16:23 Dose: 1 mls/hr Lorazepam (Ativan Inj*) 0.5 mg IV PUSH Q4H PRN PRN Reason: ANXIETY Nicotine Polacrilex (Nicotine Gum*) 2 mg PO Q2H PRN PRN Reason: CRAVING Last Admin: 04/25/16 14:41 Dose: 2 mg Pharmacy Consult (Vancomycin Per Pharmacy*) 1 note FOLLOW UP . PRN PRN Reason: PER PROTOCOL Pharmacy Profile Note (Vancomycin Trough Check) 1 note FOLLOW UP 1030 ONE Stop: 04/28/16 10:31 Prednisone (Deltasone Tab*) 10 mg PO DAILY [facility] Last Admin: 04/27/16 09:31 Dose: 10 mg Quetiapine Fumarate (Seroquel Tab*) 25 mg PO QID [facility] Last Admin: 04/27/16 16:59 Dose: Not Given Vital Signs 04/27/16 04/27/16 04/27/16 15:45 16:00 16:15 Temperature 99.6 F Pulse Rate 102 101 98 Respiratory 25 26 22 Rate Blood Pressure 134/52 121/52 120/49 (mmHg) O2 Sat by Pulse 99 98 98 Oximetry Oxygen Devices in Use Now: Nasal Cannula Appearance: Elderly frail lady lying in bed in moderate respiratory distress. Eyes: No Scleral Icterus Ears/Nose/Mouth/Throat: Mucous Membranes Moist Neck: Trachea Midline Respiratory: Symmetrical Chest Expansion and Respiratory Effort, - - BS+ bilaterally with bilateral crackles and rhonchi Cardiovascular: RRR - Normal S1 and S2 Abdominal: NL Sounds; No Tenderness; No Distention Neurological: - - AAOx2 (self and place), very NOME Lines/Tubes/Other Access: Clean, Dry and Intact Peripheral IV Result Diagrams: 04/27/16 04:05 04/27/16 04:05 Assess/Plan/Problems-Billing Assessment: Mrs. 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 In ICU from 04/23/16 to 04/25/16. - Patient Problems (1) Septic shock Comment: - Source was Enterococcus UTI, present on admission, not Echeverria catheter related. - Improved. (2) Enterococcus UTI Comment: - Likely associated with chronic urinary retention. - Continue Meropenem, add Vancomycin and will request ID consult. - Renal US was limited, but did not show hydronephrosis. (3) COPD (chronic obstructive pulmonary disease) Comment: - Continue bronchodilators and steroids. (4) Acute and chronic respiratory failure Comment: - Extubated 04/24/16. - Respiratory status is much worse today. Likely a combination of COPD, another episode of aspiration. - Will transfer to ICU for Vapotherm to decreased work of breathing. D/w Agile Coach. (5) Tachycardia Comment: - As per daughter, patient's HR at baseline is around 110bpm. - Continue Diltiazem. (6) Urinary retention Comment: - Continue Echeverria catheter. (7) Anxiety Comment: - Continue Seroquel (change to standing order as she was doing at home) , Clonazepam (change to PRN as she was doing at home). - Also has Haldol and Ativan available as needed. (8) Anemia of chronic disease Comment: - Ferritin is greater than 1500. - Monitor H/H. (9) DVT prophylaxis Comment: - Lovenox. (10) Counseling regarding end of life decision making Comment: - Lengthy and emotional conversation with daughter (Scarlet) about her mother's condition. With her progressive respiratory failure she may require intubation/MV again. She has also had great difficulty with swallowing even modified consistencies and may need a feeding tube (she understands feeding tube would not decreased risk of aspiration). She thinks her mom would not want those things done, but needs to talk to her other siblings before making any decisions. - At the time of transfer to ICU patient was a Full code, but after conversation with Dr. Wynn, family decided to make her DNR/DNI. Status and Disposition: Inpatient. Daughter (Scarlet) updated at bedside.
--- NOTE | 2016-04-27 19:13 | CONS ---
CONSULTATION REPORT: DATE OF CONSULT: 04/27/16 REQUESTING PHYSICIAN: Dr. Guadalupe. CONSULTING SERVICE: Infectious Disease. REASON FOR CONSULTATION: Respiratory failure, antibiotic duration. IMPRESSION: 1. Her recent hospitalization with septic shock in [place], her right lower lobe pneumonia and evidence of aspiration, became ill again during her convalescence, which included septic shock and hypoxemic respiratory failure. She stabilized on broad spectrum antibiotics, had pressors, she was extubated. I reviewed her x-ray which does show right great than left base infiltrate. She has cough. I do think there is aspiration pneumonia as the underlying process in her recurrent illnesses. 2. Enterococcus faecium urinary tract infection present on admission. 3. Chronic urinary retention. 4. Allergy to AMOXICILLIN, CEFAZOLIN, CEFTRIAXONE. 5. Encephalopathy, present on admission. RECOMMENDATIONS: 1. Continue broad spectrum antibiotics for another 24 hours to complete 7 days of treatment. Agree with ongoing swallow evaluation. 2. Change the urinary Echeverria catheter if it has not been done this admission yet. 3. I discussed with the patient's daughter that she is critically ill, still has respiratory failure and is extremely weak and given over 6 weeks of recurrent hospitalization for multiple episodes of septic shock. Her convalescences were complicated and it is not clear that she will survive this. HISTORY OF PRESENT ILLNESS: This is a 75-year-old woman with recent hospitalization in [place]. She cannot provide much history here given her mental status. History was obtained from review of the medical records, discussion with Dr. Guadalupe and the patient's daughter and disease case manager. She was in the hospital in [place] end of February with septic shock and right lower lobe pneumonia, felt to be due to aspiration. Her diet was changed, she went to a rehab after completing antibiotic therapy, which included meropenem. She was apparently making some progress and then became ill again on , was brought to the ER in [facility], intubated, transferred here. She was on pressors. X-ray showed the right lower lobe and left lower lobe infiltrate. She was started on meropenem and vancomycin. Cultures were taken, but cultures negative. Urine culture grew enterococcus faecium and willian albicans ; enterococcus was vancomycin sensitive. She had BAL done with Gram stain that was negative, the cultures were negative. She is continued on antibiotics, she is afebrile. She has normal white blood cell count. She cannot provide any further history. PAST MEDICAL HISTORY: 1. Acoustic neuroma, excised on the left. 2. Anxiety and depression, treated with electroconvulsive therapy. 3. COPD. 4. Macular degeneration. 5. Urinary retention, self catheterizes at home. 6. Chronic constipation. 7. Status post cholecystectomy. 8. Status post hysterectomy. 9. Status post rectocele repair. MEDICATIONS: 1. Tylenol. 2. Diltiazem. 3. Enoxaparin. 4. Haldol p.r.n. 5. Meropenem 1 g every 8 hours. 6. Seroquel. 7. Vancomycin 750 mg every 12 hours. 8. Prednisone 10 mg a day. FAMILY HISTORY: No recurrent infections. SOCIAL HISTORY: Lives at [facility] with her . She has no travel or sick contacts. REVIEW OF SYSTEMS: Unobtainable given her mental status. PHYSICAL EXAM: Vital Signs: Temperature 36.8, heart rate 120, respiratory rate 30, blood pressure 160/69, O2 sat 92% on 6 L of oxygen. General: She does not appear in distress. Neurological: She is awake. She does follow some commands. She does not answer questions. She does not regard. HEENT: There is no conjunctival hemorrhage. Mucous membranes are dry. Neck: Supple. There is a right internal jugular catheter. Lymph nodes: No cervical, supra- clavicular, inguinal, axillary or epitrochlear lymphadenopathy. Heart is regular and tachycardic without murmurs. Lungs have coarse rhonchi at the bases bilaterally. Abdomen is soft, nontender, nondistended. Skin: There is no rash or splinter hemorrhages. There is diffuse upper extremity bilateral edema. Musculoskeletal: There is no spine tenderness to palpation or joint synovitis. LABORATORY DATA: White blood cell count 6.3, hemoglobin 8.7, platelets 160, creatinine is 0.7, CRP 17. Please see impression and recommendations outlined above, which I have discussed with Dr. Guadalupe. Thanks for asking me to see Ms. Mcclelland in consultation. [id number]/[facility] #: [id number] [facility] CLINICBerto
[2016-04-28] MEDS: Meropenem 1 GM PREMIX(*) 1 GM/50 ML BAG IV SCH ×2 (00:08→09:26)
[2016-04-28] MEDS: Albuterol/Ipratropium NEB.SOL* Albuterol 2.5 MG/Ipratropium 0.5 MG 3 ML INH SCH ×3 (02:36→13:29)
[2016-04-28 06:16] LABS: Calcium 8.2 mg/dL (8.6-10.3); EGFR African American 114.9 (>60); EGFR Non-African American 89.3 (>60); Potassium 4.6 mmol/L (3.5-5.0)
[2016-04-28] MEDS ORDERED: Vancomycin Trough Check NOTE FOLLOW UP ONE (10:30)
--- NOTE | 2016-04-28 11:37 | PN ---
Progress Note - Progress Note Note: CRITICAL CARE MEDICINE Date: 04/28/16 Time: 1015 SUBJECTIVE: Patient seen and examined. family at bedside. PHYSICAL EXAM: Vital Signs: Reviewed. rr 12. Hr 90s. Neurologic: awakens to stimuli and grimace to pain; stupor otherwise. HEENT: pupils reactive. Trachea midline. Cardiovascular: S1 S2 distant, tachy Respiratory: dec globally with better phase ratio for her. Abdomen: Soft, nt. No r/g/r. Extremities: Warm. +edema. Access: R IJ LABS: Reviewed. IMAGING: Reviewed. MEDICATIONS: Reviewed. ASSESSMENT: 75 F Acute on chronic hypoxic and hypercarbic resp failure End stage copd - on 5L at home chronically Enterococcus uti - on meropenum HCAP on admission - has been on vanco; although more aspiration then new pna. Severe anxiety disorder Failure to thrive PLAN: Neurologic: much more comfortable appearing with morphine 1mg/hr. continued as she still shows signs of pain. Cardiovascular: Perfusing and does not need extra lung water although difficult to mobilize now. Respiratory: HFO2; can wean this today and see where her triggers rely. If hypoxic trigger evident, may need more morphine and more towards comfort. If can remain comfortable on less O2 then would maintain morphine as is and see where her ventilation takes us. Family at bedside and these dynamics explained. Gastrointestinal: poor nutrition but not forcing at this stage Renal/Metabolic: f/u Infectious Disease: on broad coverage continued for now depending on her course today Hematology: stable. lovenox Endocrine: stable anemia. on steroids. Musculoskeletal: bedrest. weak. unable to thrive Psych/Social: Need to see how she can maintain today to see if she shows any opportunity to improve as this is in line with her wishes. If she shows she cannot despite the support modalities, then would offer comfort care alone. d/w family at length. They all express understanding. Supportive and preventative care as ordered. Disposition: ICU Code Status: DNR/DNI Critical Care Time: 35min Cheyanne Wynn DO
[2016-04-28] MEDS ORDERED: Morphine PCA ADULT* 5 MG/ML 30 ML PCA SCH (13:50)
--- NOTE | 2016-04-28 13:55 | PN ---
Progress Note - Progress Note Note: CRITICAL CARE MEDICINE Date: 04/28/16 Time: 1425 Pt still with pain response to stimuli and immediate increase in resp rate and signs of anxiety. on 15lpm and 45%. Inability to thrive and overcome this and certainly with continued anxiety and discomfort. D/w family and all in agreement to make her more comfortable and allow comfort care alone. Disposition: ICU Code Status: DNR/DNI Critical Care Time: 15min Cheyanne Wynn DO
[2016-04-28] MEDS ORDERED: LORazepam INJ* 2 MG/ML 1 ML VIAL IV PUSH ONE (14:00)
[2016-04-28 18:57] VITALS: BP 99/47
--- NOTE | 2016-08-25 09:34 | DS ---
DISCHARGE SUMMARY: DATE OF ADMISSION: 04/23/16 DATE OF DISCHARGE: 04/28/16 DISCHARGE DIAGNOSES: 1. [id number] hypoxic and hypercarbic respiratory failure. 2. End-stage chronic obstructive pulmonary disease. 3. Enterococcus urinary tract infection. 4. Healthcare-associated pneumonia on admission. 5. Severe anxiety disorder. 6. Failure to thrive. HISTORY: The patient is a 75-year-old female with known severe COPD, on 5 L of O2 at home, transfer red from [facility] after being intubated on norepinephrine for septic shock and right lower lobe infiltrate of aspiration versus healthcare- associated pneumonia. She was treated aggressively at first with supporting therapy, although given her underlying disease and process with worsening multisystem organ dynamics and end-stage lung disease, family opted for comfort measures, which were instilled in the ICU on 04/28/16 without escalation and she peacefully in the ICU. [id number]/[facility] #: [id number]
== END 2016-04-28 18:41 | disposition expired | DRG 871 ==
LOC: ICU 06:05 → MEDTELE 04-25 19:18 → ICU 04-27 12:10
PROVIDERS: ADMIT Hospitalist; ATTEND Internal Medicine Critical Care Medicine
PROC: 5A1935Z Respiratory Ventilation, Less than 24 Consecutive Hours (ICD-10-PCS; principal; 2016-04-23)
DX: A41.9 Sepsis, unspecified organism (principal); J69.0 Pneumonitis due to inhalation of food and vomit; J96.21 Acute and chronic respiratory failure with hypoxia; R65.21 Severe sepsis with septic shock; G93.40 Encephalopathy, unspecified; J96.22 Acute and chronic respiratory failure with hypercapnia; J44.0 Chronic obstructive pulmonary disease with (acute) lower respiratory infection; J44.1 Chronic obstructive pulmonary disease with (acute) exacerbation; N39.0 Urinary tract infection, site not specified; Z78.1 Physical restraint status; J44.9 Chronic obstructive pulmonary disease, unspecified; I10 Essential (primary) hypertension; F41.9 Anxiety disorder, unspecified; H35.30 Unspecified macular degeneration; H91.90 Unspecified hearing loss, unspecified ear; K59.09 Other constipation; Z87.440 Personal history of urinary (tract) infections; Z86.14 Personal history of Methicillin resistant Staphylococcus aureus infection; F32.9 Major depressive disorder, single episode, unspecified; Z87.891 Personal history of nicotine dependence; R33.9 Retention of urine, unspecified; D72.819 Decreased white blood cell count, unspecified; B95.2 Enterococcus as the cause of diseases classified elsewhere; D64.9 Anemia, unspecified; R62.7 Adult failure to thrive; Z66 Do not resuscitate
CPT/HCPCS: 36415; 36600; 71010; 76775; 80048; 80053; 80202; 81003; 81015; 82607; 82728; 82746; 82803; 83540; 83550; 83605; 83735; 84484; 85025; 85027; 85610; 86140; 87040; 87071; 87077; 87086; 87106; 87186; 87641; 93005; 94002; 94003; 94640; 94760; A9270-GY; J1630; J1650; J2060; J2185; J2270; J2704; J2920; J3370; J7512